=== PATIENT | male | born 2000 | race African-American/Black ===

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

== ENCOUNTER 2018-06-24 23:34 | Emergency (ER) | payer MEDICAID ==
[2018-06-25] MEDS ORDERED: Albuterol/Ipratropium Neb 3 ML AERS HHN ONE ×2 (00:27→00:31)
[2018-06-25] MEDS ORDERED: Dexamethasone Sodium Phos 4 mg/mL Vial INH STA (00:28)
--- NOTE | 2018-06-25 00:35 | ED Physician Chart ---
ED Chief Complaint/HPI - Patient Information Date Seen:: 06/25/18 Time Seen:: 12:50 Chief Complaint:: ASTHMA COUGH History of Present Illness:: 17 YR OLD BOY WITH HX OF ASTHMA COUGH FOR ONE DAY PT STATES IF HE DOES NOT TREAT IT EARLY IT CAN LAST 3 WKS Allergies:: Allergies Allergy/AdvReac Type Severity Reaction Status Date / Time shellfish derived Allergy Verified 06/24/18 23:59 Vitals:: Vital Signs - 8 hr 06/24/18 23:50 Temp 99.1 F HR 72 RR 18 BP 124/76 ED Review of Systems - Review of Systems General/Constitutional: No fever Skin: No skin lesions Head: No headache Eyes: No loss of vision ENT: No earache Neck: No neck pain Cardio Vascular: No chest pain Pulmonary: No SOB, Cough GI: No vomiting G/U: No dysuria Musculoskeletal: No bone or joint pain Endocrine: No polyuria Psychiatric: No depression Hematopoietic: No bruising Allergic/Immuno: No urticaria Neurological: No syncope Family Medical History - Family Member Mother Living Status: Still Living ED Septic Shock - . Is Septic Shock (SBP<90, OR Lactate>4 mmol\L) present?: No - <6hrs of presentation: Vital Signs: Vital Signs - 8 hr 06/24/18 23:50 Temp 99.1 F HR 72 RR 18 BP 124/76 ED Reassessment (Disposition) - Reassessment Reassessment Condition:: Improved - Diagnosis Diagnosis:: ASTHMA EXACERBATION AND COUGH - Aftercare/Follow up Instructions Aftercare/Follow-Up Instructions:: Counseled pt regarding lab results/diagnosis & need follow up Medication Prescribed:: Z-PACK PHENERGAN DM AND MEDROL DOSE PACK - Patient Disposition Discharge/Transfer:: Home
== END 2018-06-25 01:05 | disposition home or self-care (01) ==
LOC: ER 23:34
DX: J45.901 Unspecified asthma with (acute) exacerbation (principal); Z91.013 Allergy to seafood
CPT/HCPCS: 94640; Z7502